=== PATIENT | female | born 1990 | race Caucasian/White ===

== ENCOUNTER 2017-03-06 05:18 | Inpatient (IN) | payer BC, OTHER ==
[2017-03-06] MEDS ORDERED: Misoprostol 50 MCG (1/2 of 100 MCG) Tab VAG PRN (06:09)
[2017-03-06] MEDS ORDERED: Lactated Ringers 500 ML IV ONE (09:13)
[2017-03-06] MEDS ORDERED: Misoprostol 400 MCG (4 X 100 MCG TAB) RECTAL PRN (09:13)
[2017-03-06] MEDS ORDERED: Lidocaine 1% 30 ML SDV INJECT PRN (09:13)
[2017-03-06] MEDS ORDERED: Calcium Carbonate 500 MG Tab.Chew PO PRN (09:13)
[2017-03-06] MEDS ORDERED: Methylergonovine 0.2 MG/1 ML Amp IM PRN (09:13)
[2017-03-06] MEDS ORDERED: Sodium Chloride 0.9% 10 ML Syringe FLUSH PRN (09:13)
[2017-03-06] MEDS ORDERED: Carboprost Tromethamine 250 MCG/1 ML Amp IM PRN (09:13)
[2017-03-06] MEDS ORDERED: Misoprostol 25 MCG (1/4 of 100 MCG) Tab VAG PRN (09:15)
[2017-03-06] MEDS: Oxytocin/Normal Saline 30 UNIT/500 ML BAG IV SCH (13:30)
[2017-03-06] MEDS ORDERED: Oxytocin/Normal Saline 30 UNIT/500 ML BAG IV SCH (13:30)
[2017-03-06] MEDS: Lactated Ringers 1,000 ML IV SCH (13:30)
--- NOTE | 2017-03-06 21:42 | PN ---
DATE: 03/06/2017 SUBJECTIVE: Nuvia did have one dose of Cytotec 25 mcg earlier this morning at about 7:20 a.m. She did begin to have fairly active contractions and then we did switch her over to IV Pitocin early in the afternoon. She was on low-dose IV Pitocin, this was gradually increased from the starting of 1 milliunit. When the IV Pitocin was at 4 milliunits at about 2:45 p.m. this afternoon, the patient did have a definite lack of variability and then some repetitive late decelerations. This was discussed thoroughly with head nurse, Joseline and myself, we did stop the IV Pitocin of course. A short time later, the patient's heart tones did start demonstrating category 1 again with very nice accelerations and moderate variability. We did leave the pit off for several hours. I did also re-evaluate the patient at 5:45 p.m. this afternoon. We had already evaluated her and seen her also over the noon hour. At 5:45 p.m., she was having a rare occasional contraction and category 1 heart tones. Cervical exam was 2 cm dilated, 60% effaced with the vertex at -2 station. The head was also somewhat ballotable. Her blood pressures have remained very stable of course. At that time, We did talk about the options of stripping the membranes again, which I did and also we talked about permitting her to ambulate in the [place] and used the birthing ball, etc. Patient has done that and although she did have more uterine activity during the ambulating time and also she did lose what might have been more of a mucus plug. The patient's contractions did space out ultimately again. We have re-evaluated and had another long and thorough discussion with the patient and her significant other, Sergo at about 8:00 p.m. tonight. We discussed the options of low-dose IV Pitocin again and perhaps just starting with 1 or 2 milliunits and possibly advancing to 3 milliunits later if heart tones stay normal. We also talked about the option of going home at any time she wanted tonight and to either wait for spontaneous labor in the relatively near future. Also, I could discuss her tomorrow with Dr. Lisseth Kumar, who is somewhat familiar with this patient also and decide whether or not Dr. Lisseth Kumar would want to try the induction again in the next few days or so. Also, I mentioned to the patient that I am coming back next Saturday, Saturday, or of next week. Because of the fact that the patient did demonstrate some short-term distress, I am somewhat hesitant on giving her Cytotec intravaginally again tonight since that may be hard to reverse once it is given. Certainly, we can stop IV Pitocin and because of the short half life, that can be done if any distress reoccurs. I do feel we have a healthy baby at this time and still somewhat of an unripe cervix. We did discuss the virtues of patience and waiting with the patient. All of her questions have been answered as best as possible. For now, she does choose to stay here for the present time and see if we can get progress with low- dose Pitocin for now. [facility] /[id number]
[2017-03-06] MEDS ORDERED: hydrOXYzine HCl 25 MG Tab PO PRN (22:29)
--- NOTE | 2017-03-07 08:57 | HP ---
HISTORY OF PRESENT ILLNESS: This patient is a very pleasant 26-year-old 3, para 2 patient, whom we have been following prenatally. Patient does request and urge induction of labor at this time. Her ELIO is 03/10/2017, and although her care was somewhat late in [place] when we started seeing her around 25 weeks gestation, she did have an early 3D OB ultrasound in [place] when she was 10 to 12 weeks along and that also gave her an ELIO of 03/10/2017. She also had another ultrasound at approximately 23 weeks gestation in [place] and that also confirmed the ELIO of 03/10/2017. She does request an urge to the induction of labor because of all the [facility] relatives and friends who are here helping her with director child and also her has recently sustained a left hand injury and is having some problems returning back to his regular work schedule. Her course has otherwise been quite uncomplicated, please see the EHR for further detail. Her lab data reveals that her GC and chlamydia testing were negative. RPR, hepatitis B surface antigen, and HIV testing all were negative also. Her blood type is O positive, unsensitized. She is negative for group B strep. She is nonimmune to rubella and will need rubella injection . She did have flu shot in the past 10 days. She also has had previous Tdap. Her 1 hour glucose screen was borderline at 1:32. PAST OBSTETRICAL HISTORY: She did have two vaginal deliveries previously without difficulty and she thinks that her babies were in the 7 pounds 14 ounce range. She has one girl of age 5 and the other girl of age 3. As mentioned above, she denied any problems with those courses and had induction of labor without difficulty for those two pregnancies. PAST MEDICAL HISTORY: She does admit to having attention deficit hyperactivity disorder, but is not on any Adderall or medications for that at the present time. Other medications consist of vitamins in the form of Flintstones Gummies. She denies any knowledge of heart, lung, liver, or kidney disease. ALLERGIES: None known, although she does admit to having some slight nausea when she takes Keflex or hydrocodone. FAMILY HISTORY: Interestingly, she does have a positive family history for malignant hyperthermia with her mother and a grandmother having that. Nuvia is aware that she should always inform any hr intern or anesthesiologist of this significant history before any operations. SOCIAL HISTORY: She is with her significant other, Sergo; he is employed in the [employer] area, he also recently had a significant hand injury to his left hand. The patient is a nonsmoker and does not use alcohol. PHYSICAL EXAMINATION: VITAL SIGNS: Weight 269 pounds. Blood pressure 120/72, pulse 72. HEENT: The sclerae are nonicteric. LUNGS: Clear to A. HEART: Regular rhythm without murmur. ABDOMEN: Gravid with reactive nonstress test. heart tones are 144, fundal height is 37 cm. There is negative CVA tenderness. VAGINAL: Today, remains at 1 to 2 cm, 50% effaced, and vertex at -2 station with the bag of yun intact. The presenting part is thought to be a vertex. EXTREMITIES: Reveal trace ankle edema. heart tones as mentioned above are category 1 with nice accelerations and moderate variability. IMPRESSION: The patient has requested an urged induction of labor for family reasons and also she does have it should be mentioned significant lower back and occasional abdominal discomfort of late . She is not sleeping well. I did consent to cautious trial of labor because of her cervix not being quite as ripe as we would like; we will start with a course of 25 mcg of Cytotec. We will see how she responds after 4 to 6 hours. Possible future IV Pitocin. Possible future amniotomy when the vertex is engaged. We did thoroughly discuss with her the risks and sometimes complications of induction of labor and she is aware that if she did not make adequate progress, we would back off and discontinue the induction procedure and try again in few days in the future or possibly even wait longer for onset of spontaneous labor if necessary. She is agreeable to what we have discussed. She also gives consent to and does request and urged the induction of labor. Her urinalysis from today is pending. She denies all urinary symptoms. Also, please see the EHR as it pertains to the remainder of her admission labor lab work. The patient will need rubella vaccine . [facility] /[id number]
--- NOTE | 2017-03-07 09:45 | PN ---
DATE: 03/07/2017 HISTORY: On rounds this morning, Alexeiera and the nurses report that the patient did get a moderate amount of rest last night, and the Pitocin was running for at least 6 hours at 6 milliunits. heart tones had remained category 1 at all times. The patient did notice the contractions getting stronger at approximately 7:45 a.m., to 8:00 a.m. today. I did see the patient at 8:30 a.m., to 8:45 a.m. this morning, on , 03/07/2017. heart tones remained category 1 as mentioned above. Cervical examination at approximately 8:30 to 8:45 this morning, shows that it is now 3+ cm dilated. It remains posterior. The effacement remains at approximately 60% to 65%. It is somewhat softer than yesterday. The vertex is at -2 to -1 station and of course, not quite low enough for safe or appropriate amniotomy. The patient is still urging and hoping for further induction of labor. I did tell her that I will thoroughly discuss her situation with Dr. Lisseth Kumar, who knows her and also Dr. Christiana Guerrero, who also was solutions engineer, and was familiar with her. Dr. Kumar, and I have most recently discussed her, and the current plan is to continue the Pitocin for now since she is caleb with good moderate quality contractions every 5 minutes. Possibly the Pitocin could be continued for the next 3 to 4.5 hours or so. If the cervix does efface better, and further cervical progress, one could continue on with the induction. If however the cervix remains at the present degree of effacement and not significant progress, consideration should be given to stopping the induction at this time, and then letting the patient go home and be re-evaluated in the next several days. Hopefully, spontaneous labor would then occur. These matters will be discussed with the head nurses and the patient. I have already discussed this most recently with Dr. Kumar as mentioned above. [facility] /[id number]
[2017-03-07] MEDS ORDERED: Nalbuphine 10 MG/1 ML Vial IM ONE ×2 (09:49→19:20)
[2017-03-07] MEDS: Lactated Ringers 1,000 ML IV SCH ×3 (16:05→23:19)
--- NOTE | 2017-03-07 17:17 | PCM.SN ---
- Free Text/Narrative Note: DOS: 03-07-17 Doing well. Feeling some cxns. Pit is back on and now up to 8. cervix is 4+ cm, soft, but still fairly thick. vertex is well applied and no longer ballotable. AROM carried out with return of moderate amount of clear fluid. FHTs remain reassuring. nice accels. baseline 135, no decels Will continue to increase pitocin as tolerated until active labor pattern obtained. Shamera planning intrathecal when indicated. All questions answered. Further management pending her clinical course in labor. margi
[2017-03-07] MEDS: Oxytocin/Normal Saline 30 UNIT/500 ML BAG IV SCH (19:35)
[2017-03-08] MEDS: Ondansetron 4 MG/2 ML SDV IV PRN ×2 (02:27→09:28)
[2017-03-08] MEDS ORDERED: fentaNYL 100 MCG/2 ML SDV ONE ×3 (02:49→14:06)
--- NOTE | 2017-03-08 03:15 | PCM.SN ---
- Free Text/Narrative Note: 03/08/17 [id number] intrathecal medications administered L 2-3 #24 pencan needle x 1 csf clear no paresthesia sufenta 20 mcg fentanyl 30 mcg 1.2ml pf normal saline 6 mg bupivacaine 0.1 mg epinephrine procedure along with risks goals alternatives explained to patientt and accepted
[2017-03-08] MEDS: Lactated Ringers 1,000 ML IV SCH ×4 (03:33→17:00)
[2017-03-08] MEDS ORDERED: fentaNYL 100 MCG/2 ML SDV ITHECAL ONE ×2 (08:30→17:29)
[2017-03-08] MEDS: Acetaminophen 325 MG Tab PO PRN (09:28)
--- NOTE | 2017-03-08 09:38 | PN ---
DATE: 03/08/2017 HISTORY OF PRESENT ILLNESS: Nuvia is a 26-year-old, G3, P2, who is now 39 and 5/7 weeks' gestation, who was admitted by Dr. Duarte for induction. I assumed her care yesterday. She had been started with Cytotec for cervical ripening followed by Pitocin augmentation. Yesterday, we were able to proceed with artificial rupture membranes with return of a moderate amount of clear fluid. After this, we increased her Pitocin infusion. Due to staffing on the OB floor, we were required to stop her Pitocin for several hours yesterday. During that time, her contractions essentially resolved. Yesterday late afternoon/early evening, we were able to restart the Pitocin. Her contractions then resumed and became uncomfortable for her. She had an intrathecal placed. She continued with the Pitocin increasing and her contractions became closer together. She had good relief of her discomfort from the intrathecal and was able to sleep through her contractions and rest for most of the night. heart tones remained reassuring. The baby tolerated the labor fairly well. This morning, her cervix is now 7+ cm dilated, and has thinned out nicely, and is nearly 90% effaced. However, the baby's head does still remain high. Had approximately a -1 station. The baby is moving its head around, but I suspect it is an OP presentation. It does not settle down well into the pelvis yet, but is not really ballotable at this point. She continues to have clear fluid leakage. She has no other new concerns or complaints. She is starting to feel her contractions more this morning and is interested in considering a second intrathecal if necessary. Her Pitocin at this time is up to 24. PHYSICAL EXAMINATION: General: On exam today, she appears well. She easily answers questions, and is comfortable between her contractions. With a contraction, she is uncomfortable, but is able to breathe through them easily. Lungs: She has no respiratory distress. Heart: Rate is regular. Abdomen: Soft between contractions. Extremities: She has no significant edema. Genitourinary: Vaginal exam is as noted. LABORATORY DATA: Labs today show her urine culture final result, mixed shefali, and appears to be a contaminant and not a urinary pathogen. baseline today is 125 at this time. She was having some early declarations intermittently. She had nice accelerations, especially with a vaginal exam and scalp stimulation. No worrisome declarations are noted. After IUPC placement, she is having contractions approximately every 3 minutes, and overall every 2 to 4 minutes. They are measuring 50 to 60. IMPRESSION: A 26-year-old, G3, P2, currently at 39 and 5/7 weeks' gestation. IUPC showing adequate contractions at this time on the Pitocin at high dose. I suspect OP presentation. I suspect this baby is larger than her other 2 babies, who were 7 pounds 14 ounces, although, her pelvis appears adequate. PLAN: Discussed options with Cindy. At this time, she wishes to try for vaginal delivery if possible and avoid a section. We will leave her IUPC in place. We will leave the Pitocin as it is. If her contractions are not excessively strong, and at this time, we will not need to go down on the Pitocin. She will try some change in maternal position to see if we can facilitate rotation of the baby. They do understand that if the baby does not change its position, the head may not come down, and she may require section for delivery. If her contractions become increasingly painful as her intrathecal wears off, the patient may request a second intrathecal if necessary if she is making good cervical change. If she has 2 to 4 hours of continued adequate contractions with no cervical change, we will consider proceeding to section for delivery as discussed. Cindy are comfortable with this plan. Further management pending her course in labor and tolerance of labor. All of their questions were answered. Rima will be following for 1 on 1 staffing and is also comfortable with this plan. Further management pending her clinical course. [facility] /[id number]
[2017-03-08] MEDS ORDERED: Citric Acid/Sodium Citrate Solution 30 ML Cup PO ONE (12:02)
[2017-03-08] MEDS ORDERED: Oxytocin/Normal Saline 30 UNIT/500 ML BAG ONE ×2 (12:03→12:26)
[2017-03-08] MEDS ORDERED: Clindamycin Phosphate 900 MG in Sodium Chloride 0.9% 100 ML IV ONE (12:23)
[2017-03-08] MEDS ORDERED: ePHEDrine 50 MG/ML SDV ONE (12:24)
[2017-03-08] MEDS ORDERED: Ondansetron 4 MG/2 ML SDV ONE (12:24)
[2017-03-08] MEDS ORDERED: Dexamethasone 4 MG/ML SDV ONE (12:24)
[2017-03-08] MEDS ORDERED: Morphine PF 1 MG/ML Amp ONE (12:24)
[2017-03-08] MEDS ORDERED: Ketorolac 30 MG/ML SDV ONE (12:25)
[2017-03-08] MEDS ORDERED: Clindamycin Phosphate 900 MG/6 ML SDV ONE (12:28)
[2017-03-08] MEDS ORDERED: Sodium Chloride 0.9% 100 ML ONE (12:28)
--- NOTE | 2017-03-08 14:53 | PN ---
DATE: 03/08/2017 SUBJECTIVE: Nuvia is a 26-year-old, G3, P2 who was admitted by Dr. Duarte for induction at 39 and 3/7 weeks gestation. She started with Cytotec followed by artificial rupture of membranes and Pitocin augmentation. We have subsequently placed an IUPC and she has been having adequate contractions. However, she has had arrest of labor at 7 cm dilation for the last several hours and we suspect this baby is in an OP presentation. Remains at a -1 station. She has had 2 intrathecal and is now at a time when she and her significant other who is the father of the baby both wished to proceed with the section that we had previously discovered. The baby has remained with a reassuring pattern. We have discussed spinal anesthesia. We will plan on primary low-transverse section with Pfannenstiel incision. The risks of the procedure will include but not be limited to reaction to anesthesia, injury to mom or baby, hemorrhage and possible need of blood transfusion with its inherent risks, blood clots, DVT, PE, etc., need for further surgery or other complications. All of their questions have been answered and they wished to proceed with a section as previously discussed. I will be assisted by Dr. Burris and Robby Che, MS 4. Dr. Guerrero and Dr. Chavez are also available geospatial information scientist today and we will have their pagers on in case we need them for assistance. Further management pending her course and surgery. Luciano are happy with this plan and feel that we have given every chance for vaginal delivery. [facility] /[id number]
[2017-03-08] MEDS ORDERED: Ketorolac 30 MG/ML SDV IVPUSH SCH (18:00)
[2017-03-08] MEDS: Ketorolac 30 MG/ML SDV IVPUSH SCH (19:31)
[2017-03-09] MEDS: Lactated Ringers 1,000 ML IV SCH ×2 (01:22→10:02)
[2017-03-09] MEDS: Ketorolac 30 MG/ML SDV IVPUSH SCH ×2 (02:06→08:34)
--- NOTE | 2017-03-09 03:10 | OR ---
DATE: 03/08/2017 PREOPERATIVE DIAGNOSES: 1. A 26-year-old, G3, P2, at 39 and 5/7 weeks' gestation. 2. Arrest of labor with arrest of decent. 3. Rubella nonimmune. 4. Group B strep negative. 5. O positive blood type. POSTOPERATIVE DIAGNOSES: 1. A 26-year-old, G3, P2, at 39 and 5/7 weeks' gestation. 2. Arrest of labor with arrest of decent. 3. Rubella nonimmune. 4. Group B strep negative. 5. O positive blood type. 6. Now 26-year-old, 3, now para 3, ROP position of baby confirmed with a nuchal cord x1 and shoulder cord x1. 7. A viable female , 7 pounds 7 ounces/3365 g with Apgars 9 and 9. 8. candidate. PROCEDURE: Primary low-transverse section with two-layer closure. ASSISTANTS: 1. Dr. Burris. 2. Robby Che, MS-4. 3. Available immediately if needed, Dr. Guerrero and Dr. Chavez. FINDINGS: This 26-year-old G3, P2 at 39 and 5/7 weeks' gestation was brought in for induction by Dr. Duarte and has had subsequent arrest of descent in labor at 7 cm dilated in spite of adequate contractions. Please see her notes for details. She subsequently was brought down to the OR and underwent spinal anesthesia with good results. A Rdz catheter was placed and had return of clear urine. She was prepped and draped in the usual sterile manner. She received clindamycin 900 mg IV preoperatively. A purple skin marker was used to niels her Pfannenstiel incision site. A scalpel was used to make a skin incision. A time-out had been performed in my presence. Electrocautery was used to carry down through the subcutaneous tissue to the fascia which was divided transversely. Superior and inferior fascial flaps were developed with sharp and blunt dissection. The muscle was divided in the midline, and the peritoneum was identified and entered bluntly. Incision was extended and opened until we had excellent visualization of the lower uterine segment. XL Rodo was placed without difficulty and we had excellent visualization. A bladder flap was developed with blunt dissection. A stab incision was made in the lower uterine segment and carried down to the level of the amniotic sac. This was bluntly entered by me and return of clear fluid. This was extended laterally with blunt dissection and the baby was indeed found to be in a ROP position. The vertex was elevated and easily entered into the incision and a fairly tight nuchal cord x1 was noted which was reduced. The cord was also wrapped around the right shoulder and axilla quite tightly. The remainder of the was delivered without difficulty. This viable female was delivered at 1302 hours on 03/08/2017, and was found to have scores of 9 and 9 at one and five minutes respectively with a weight of 7 pounds 7 ounces/3365 g. She had a strong cry at and was suctioned and stimulated and dried while her cord was doubly clamped and cut. She was carried over to the warmer by LOLA Puga. A cord blood sample was obtained. Placenta was removed and appeared to be intact. The uterus was wiped clean and dry. The uterine incision edges were grasped with Shea forceps and then closed with running locking 0 Vicryl suture. A second imbricating layer was placed of the 0 Vicryl suture. Several hemostatic sutures were placed in the right side of the uterine incision edge with confirmation of hemostasis. Electrocautery was used for small bleeders throughout the case. The uterus appeared to have normal anatomy including tubes and ovaries. The posterior cul-de-sac was examined and aspirated and did not show any sign of active bleeding. Uterus was placed back into the abdominal cavity. The area was irrigated, wiped clean and dry, and did not show any signs of active bleeding. All blood clots had been removed. Again, hemostasis was confirmed over the area of the incision. Peritoneal muscles were pulled together with running 0 Vicryl. The fascia was closed with loop Maxon. The subcutaneous layer was examined and bleeders were electrocauterized. The skin layer was brought together with brooke with excellent results. There were no intraoperative complications. The patient tolerated the procedure well. She received clindamycin IV infusion 900 mg preop. IV Pitocin infusing per protocol. 1500 mL clear urine output with no sign of hematuria. ESTIMATED BLOOD LOSS: 600 mL. DISPOSITION: The patient was transferred to the recovery area in good condition. [facility] /[id number]
[2017-03-09] MEDS: Acetaminophen 325 MG Tab PO PRN (10:10)
[2017-03-09] MEDS: Prenatal Multivitamin with Calcium/Folic Acid/Iron Tab PO SCH (10:10)
[2017-03-09] MEDS: Simethicone 80 MG Tab.Chew PO PRN ×2 (10:10→18:15)
[2017-03-09] MEDS: Ibuprofen 800 MG Tab PO PRN (18:15)
[2017-03-09] MEDS: Ferrous Sulfate 325 MG Tab PO SCH (18:15)
[2017-03-09] MEDS: Acetaminophen/oxyCODONE 325-5 MG Tab PO PRN ×2 (18:16→22:42)
--- NOTE | 2017-03-09 20:23 | PN ---
DATE: 03/09/2017 The patient is postoperative day 1, status post primary low transverse for failed induction. Mom and baby are both doing well. She is tolerating p.o., has good pain control and is ambulating. Unfortunately, her Rdz was removed last night and it had to be replaced when she could not void. The patient on physical exam is afebrile. Heart rate 64 to 82, blood pressure 116 to 134 over 46 to 74, respiratory rate 16 to 18. The patient's blood type is O positive. She is rubella nonimmune. The patient's abdomen is benign. Extremities have no tenderness, no edema. Fundus is firm below the umbilicus. Bandage is intact, clean and dry. Due to this patient having some difficulty voiding, UA was performed that was negative. Patient's preoperative CBC; white count 10.5, hemoglobin 11.2, and platelets 375. Postoperative CBC; white count 17.8, hemoglobin 8.9, and platelets 262. ASSESSMENT AND PLAN: Postoperative day #1, status post primary low-transverse section after failed induction. The patient will have another voiding trial today. We will remove the Rdz and see if she is able to urinate. Otherwise, we will continue postoperative care and continue iron for her mild anemia. [facility] /[id number] MTDD
[2017-03-10] MEDS: Acetaminophen/oxyCODONE 325-5 MG Tab PO PRN ×2 (02:45→14:43)
[2017-03-10] MEDS: Ibuprofen 800 MG Tab PO PRN ×2 (05:21→14:24)
[2017-03-10] MEDS ORDERED: Ondansetron 4 MG Tab.DIS PO PRN (05:27)
[2017-03-10] MEDS: Ferrous Sulfate 325 MG Tab PO SCH (08:32)
[2017-03-10] MEDS: Prenatal Multivitamin with Calcium/Folic Acid/Iron Tab PO SCH (08:32)
[2017-03-10] MEDS: Acetaminophen 325 MG Tab PO PRN (08:32)
[2017-03-10] MEDS: Simethicone 80 MG Tab.Chew PO PRN (08:32)
[2017-03-10] MEDS ORDERED: Measles, Mumps & Rubella Vaccine 0.5 ML SDV SUBCUT ONE (10:47)
[2017-03-10] MEDS ORDERED: Acetaminophen/Butalbital/Caffeine 325-50-40 MG Tab PO PRN (10:49)
[2017-03-10] MEDS ORDERED: Docusate Sodium 100 MG Cap PO PRN (10:50)
[2017-03-10] MEDS ORDERED: Acetaminophen/Codeine 300-30 MG Tab PO PRN (11:49)
[2017-03-10 12:12] VITALS: BP 121/58
--- NOTE | 2017-03-10 17:09 | PN ---
DATE: 03/10/2017 SUBJECTIVE: The patient is postoperative day #2, status post primary low transverse for failed induction. The patient is tolerating p.o., voiding, ambulating, has good pain control. However, she is experiencing significant headache, likely spinal headache, also some constipation. Baby is doing well. PHYSICAL EXAMINATION: Vital Signs: The patient is afebrile. Heart rate 60 to 82, blood pressure of 100 to 138 over 60 to 77, respiratory rate 18 to 20, and O2 saturations 97% to 100%. Abdomen: Benign. Bandage was removed. Bruce are in place. Incision is clean, dry, and intact. Pelvic: Fundus is firm below the umbilicus. Extremities: Have no tenderness, no edema. LABORATORY DATA: The patient is O positive. Rubella nonimmune. Did order her MMR this morning. A pre-delivery CBC showed a white blood cell count of 10.5, hemoglobin 11.2, platelets 375; and then postoperative CBC showed white blood cell count of 17.8, hemoglobin 8.9, and platelets 262. ASSESSMENT AND PLAN: Postoperative day #2, status post primary . Mom and baby are both doing well. For the constipation, I did go ahead and ordered Colace; for her anemia, we will continue her iron; and for the spinal headache, I did order Fioricet; and if that did not help, then I would likely seek the recommendation of our RV DETAILER and then the patient will likely be discharged once she is feeling better. [facility] /[id number]
[2017-03-10] MEDS ORDERED: Morphine PF 1 MG/ML Amp ONE (17:29)
[2017-03-10] MEDS ORDERED: Ondansetron 4 MG/2 ML SDV IV ONE (17:29)
[2017-03-10] MEDS ORDERED: Dexamethasone 4 MG/ML SDV IV ONE (17:29)
[2017-03-10] MEDS ORDERED: Nalbuphine 20 MG/1 ML Amp IV ONE (17:29)
[2017-03-10] MEDS ORDERED: Ketorolac 30 MG/ML SDV IVPUSH ONE (17:29)
[2017-03-10] MEDS ORDERED: Oxytocin/Normal Saline 30 UNIT/500 ML BAG IV ONE (17:29)
--- NOTE | 2017-03-11 08:18 | PCM.PRNOTE ---
- Free Text/Narrative Note: I obtained the history and performed a limited anesthesia examination of this patient. She requests labor analgesia in the form of ITN. I obtained her written and verbal informed consent. I performed the ITN in her labor room with the assistance of her OB RN. I utilized sterile technique including hat, mask and gloves. I used povidone/iodine skin prep x3 and placed a sterile drape. I utilized lidocaine skin wheal at L3/[address] a 25ga. Pencan midline to obtain CSF on the first try. I then injected a mixture of Fentanyl 25ug and Marcaine/Dextrose 4mg ITN and obtained good bilateral effect of leg warmth and analgesia within 3 minutes. Maternal VSS and VS reassuring before, during and after ITN.
--- NOTE | 2017-05-13 07:43 | DISCH ---
She was admitted on 03/06/2017 with a diagnosis of an intrauterine at 39+ weeks' gestational age, admitted for elective induction. She was discharged on 03/10/2017, postoperative day #2, status post primary low-transverse C- section for failed induction and failure to progress. HOSPITAL COURSE: The patient did desire induction. She was given both Cytotec and low-dose Pitocin and even offered to come back on another day when her cervix is more favorable. She wished to proceed. Therefore, she also underwent AROM. She did have a failure to progress at 7 cm. She did undergo a primary low transverse on 03/08/2017. The postoperative course was uneventful except for spinal headache. Hemoglobin postoperatively was 8.9 from 11.2 preop. The patient's blood type is O positive. The patient is rubella immune. Abdomen is benign, and vital signs remained stable. During her hospital course, by postoperative day #2, she was ambulating, voiding, tolerating p.o., and had good pain control. Therefore, she was sent home on pain medications and iron. She is to follow up for both staple removal and then for a 6-week visit. The patient is to be continue pelvic and abdominal rest. She was discharged in stable condition on 03/10/2017. MODL /[id number] MTDJuani
== END 2017-03-10 17:30 | disposition home or self-care (01) | DRG 540 ==
LOC: DL.OB 05:42 → UNDOADMOB 05:42 → INTOOBSV 03-08 13:02 → OBSVTOIN 03-08 13:02 → DL.MS 03-09 17:18 → UNDOADMOB 03-09 17:18 → INTOOBSV 03-09 17:18 → OBSVTOIN 03-09 17:18 → DL.OB 03-10 17:25 → DL.MS 03-10 17:25 → UNDODISIN 03-10 17:30
PROVIDERS: ADMIT Family Medicine; ATTEND Obstetrics & Gynecology
PROC: 3E033VJ Introduction of Other Hormone into Peripheral Vein, Percutaneous Approach (ICD-10-PCS; 2017-03-06)
PROC: 3E0P7GC Introduction of Other Therapeutic Substance into Female Reproductive, Via Natural or Artificial Opening (ICD-10-PCS; 2017-03-06)
PROC: 00HU33Z Insertion of Infusion Device into Spinal Canal, Percutaneous Approach (ICD-10-PCS; 2017-03-08)
PROC: 3E0R3CZ (ICD-10-PCS; 2017-03-08)
PROC: 10D00Z1 Extraction of Products of Conception, Low, Open Approach (ICD-10-PCS; principal; 2017-03-09)
DX: O62.1 Secondary uterine inertia (principal); O69.81X0 Labor and delivery complicated by cord around neck, without compression, not applicable or unspecified; Z3A.40 40 weeks gestation of pregnancy; Z37.0 Single live birth
CPT/HCPCS: 36415; 51702; 81001; 85027; 86850; 86900; 86901; 87086; 90471; 90707; A9270-GY; J1100; J1885; J2274; J2300; J2405; J2590; J3010; J7050; J7120; S0077

== ENCOUNTER 2017-09-25 07:42 | Emergency (ER) | payer BC, OTHER, SELFPAY ==
[2017-09-25 08:09] VITALS: BP 142/77
[2017-09-25] MEDS ORDERED: Sodium Chloride 0.9% 1,000 ML IV ONE (08:47)
[2017-09-25] MEDS ORDERED: Ondansetron 4 MG/2 ML SDV IV ONE (08:47)
[2017-09-25] MEDS ORDERED: Sodium Chloride 0.9% 10 ML Syringe FLUSH PRN (08:48)
--- NOTE | 2017-09-25 09:09 | EDM.PDOC ---
ED HPI GENERAL MEDICAL PROBLEM - General Chief Complaint: Gastrointestinal Problem Stated Complaint: SICK X 2 DAYS, [id number] Time Seen by Provider: 09/25/17 08:25 Source of Information: Reports: Patient, Old Records, RN, RN Notes Reviewed History Limitations: Reports: No Limitations - History of Present Illness INITIAL COMMENTS - FREE TEXT/NARRATIVE: Arrives from home by POV with c/o three days duration of nausea, vomiting, and watery diarrhea. Pt reports onset of Sx's was 4 hours after eating at [employer] , so she thought she had food poisoning but now that the Sx's have persisted for 3 days she thinks maybe she just got a "stomach flu" or something other than food poisoning. She denies fever or abdominal pain, mucus in stool, bloody or black/dark stool or emesis, coffee ground emesis, or melena. Admits to chills and mild cold sweats that precede episodes of emesis, and to crescendos of abdominal cramping that build and precede diarrhea BM's. No known sick contacts. Onset: Sudden Onset Date: 09/22/17 Duration: Waxing/Waning Location: Reports: Abdomen Quality: Reports: Other (cramping) Severity: Severe Improves with: Reports: None Worsens with: Reports: Eating Associated Symptoms: Reports: No Other Symptoms Treatments CONDENSER TESTER: Reports: Acetaminophen - Related Data Allergies Allergy/AdvReac Type Severity Reaction Status Date / Time acetaminophen Allergy Nausea and Verified 02/22/17 12:58 [From Lorcet (hydrocodone)] Vomiting cephalexin [From Keflex] Allergy Nausea Verified 02/22/17 12:58 hydrocodone Allergy Nausea and Verified 02/22/17 12:58 [From Lorcet (hydrocodone)] Vomiting Home Meds: Home Meds Acetaminophen [Tylenol] 350 mg PO Q4H PRN 11/26/16 [History] buPROPion HCl [Wellbutrin SR] 1 tab PO DAILY 09/25/17 [History] Past Medical History - Past Health History Medical/Surgical History: Denies Medical/Surgical History Genitourinary History: Reports: UTI, 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: , Other (See Below) : 3 Para: 3 Other OB/BYN History: treated for BV recently Psychiatric History: Reports: ADHD Endocrine/Metabolic History: Reports: Obesity/BMI 30+ - Past Surgical History Female Surgical History: Reports: Section Social & Family History - Family History Family Medical History: Unobtainable - Tobacco Use Smoking Status *Q: Former Smoker Used Tobacco, but Quit: Yes Month/Year Tobacco Last Used: 09/2016 Second Hand Smoke Exposure: No - Caffeine Use Caffeine Use: Reports: Coffee, Soda - Recreational Drug Use Recreational Drug Use: No - Living Situation & Occupation Living situation: Reports: , with Family Occupation: Employed ED ROS GENERAL - Review of Systems Review Of Systems: ROS reveals no pertinent complaints other than HPI. ED EXAM, GI/ABD - Physical Exam Exam: See Below Exam Limited By: No Limitations General Appearance: Alert, WD/WN, No Apparent Distress, Obese Eyes: Bilateral: Normal Appearance (no scleral icterus) Nose: Normal Inspection Throat/Mouth: Normal Lips, Normal Teeth, Normal Gums, Normal Oropharynx, Normal Voice, No Airway Compromise, Other (dry oral membranes) Head: Atraumatic, Normocephalic Neck: Normal Inspection, Supple, Non-Tender, Full Range of Motion. No: Lymphadenopathy (L), Lymphadenopathy (R) Respiratory/Chest: No Respiratory Distress, Lungs Clear, Normal Breath Sounds, No Accessory Muscle Use, Chest Non-Tender Cardiovascular: Regular Rate, Rhythm, No Edema, No Murmur, Tachycardia GI/Abdominal Exam: Normal Bowel Sounds, Soft, No Distention, No Abnormal Bruit, Tender (mild generalized upper and left sided abd. tenderness, no RLQ tenderness , no peritoneal signs.). No: Guarding, Rigid, Rebound (Female) Exam: Deferred Rectal (Female) Exam: Deferred Back Exam: Normal Inspection, Full Range of Motion. No: CVA Tenderness (L), CVA Tenderness (R) Extremities: Normal Inspection, Non-Tender Neurological: Alert, Oriented, CN II-XII Intact, Normal Cognition, Normal Gait, No Motor/Sensory Deficits Psychiatric: Normal Affect, Normal Mood Skin Exam: Warm, Dry, Intact, Normal Color, No Rash Course - Vital Signs Last Recorded V/S: Last Vital Signs Temp 36.1 C 09/25/17 08:08 Pulse 112 H 09/25/17 08:08 Resp 20 09/25/17 08:08 BP 142/77 H 09/25/17 08:08 Pulse Ox 97 09/25/17 08:08 - Orders/Labs/Meds Orders: Active Orders 24 hr Category Date Time Status Peripheral IV Care [RC] . DIRECTED Care 09/25/17 08:49 Active C DIFFICILE TOXIN BY PCR [MREF] Stat Lab 09/25/17 09:40 Received CULTURE STOOL [RM] Stat Lab 09/25/17 09:40 Received HCG QUALITATIVE,URINE [URCHEM] Stat Lab 09/25/17 09:33 Ordered OCCULT BLOOD DIAGNOSTIC [OP] Stat Lab 09/25/17 09:40 Ordered SHIGA TOXIN 1 & 2 [MREF] Stat Lab 09/25/17 09:40 Received UA W/MICROSCOPIC [URIN] Stat Lab 09/25/17 09:33 Ordered Sodium Chloride 0.9% [Saline Flush] Med 09/25/17 08:48 Active 10 ml FLUSH ASDIRECTED PRN Peripheral IV Insertion Adult [OM.PC] Stat Oth 09/25/17 08:48 Ordered Medication Orders Sodium Chloride (Saline Flush) 10 ml FLUSH ASDIRECTED PRN PRN Reason: Keep Vein Open Last Admin: 09/25/17 08:53 Dose: 10 ml Labs: Laboratory Tests 09/25/17 09/25/17 09/25/17 Range/Units 09:00 09:00 09:00 WBC 6.2 (5.0-10.0) 10^3/uL RBC 5.30 (4.2-5.4) 10^6/uL Hgb 13.9 D (12.0-16.0) g/dL Hct 42.6 (37.0-47.0) % MCV 80.4 D (80-100) fL MCH 26.2 L (27.0-34.0) pg MCHC 32.6 L (33.0-35.0) g/dL Plt Count 251 (150-450) 10^3/uL Neut % (Auto) 75.3 H (42.2-75.2) % Lymph % (Auto) 11.9 L (20.5-50.1) % [place] % (Auto) 10.3 H (2-8) % Eos % (Auto) 2.3 (1.0-3.0) % Baso % (Auto) 0.2 (0.0-1.0) % Sodium 135 (135-145) mmol/L Potassium 3.1 L (3.6-5.0) mmol/L Chloride 106 (101-111) mmol/L Carbon Dioxide 20.0 L (21.0-31.0) mmol/L Anion Gap 12.1 BUN 12 (7-18) mg/dL Creatinine 0.7 (0.6-1.3) mg/dL Est Cr Clr Drug Dosing TNP Estimated GFR (MDRD) > 60 BUN/Creatinine Ratio 17.14 Glucose 88 (74-105) mg/dL Calcium 8.2 L (8.4-10.2) mg/dl Total Bilirubin 0.4 (0.2-1.0) mg/dL AST 87 H (10-42) IU/L ALT 56 (10-60) IU/L Alkaline Phosphatase 54 (42-121) IU/L C-Reactive Protein 5.1 H (0.0-1.3) mg/dL Total Protein 7.3 (6.7-8.2) g/dl Albumin 3.9 (3.2-5.5) g/dl Globulin 3.4 Albumin/Globulin Ratio 1.15 Amylase 22 L (28-100) U/L Lipase 17 L (22-51) U/L Urine Color (YELLOW) Urine Appearance (CLEAR) Urine pH (5.0-9.0) Ur Specific [place] (1.005-1.030) Urine Protein (NEGATIVE) Urine Glucose (UA) (NEGATIVE) Urine Ketones (NEGATIVE) Urine Occult Blood (NEGATIVE) Urine Nitrite (NEGATIVE) Urine Bilirubin (NEGATIVE) Urine Urobilinogen (0.2-1.0) mg/dL Ur Leukocyte Esterase (NEGATIVE) Urine RBC /HPF Urine WBC (0-5/HPF) /HPF Ur Epithelial Cells /HPF Amorphous Sediment (0/HPF) /HPF Urine Bacteria (0-FEW/HPF) /HPF Urine Mucus /LPF Urine HCG, Qual 18 09/25/17 Range/Units 09:33 09:33 WBC (5.0-10.0) 10^3/uL RBC (4.2-5.4) 10^6/uL Hgb (12.0-16.0) g/dL Hct (37.0-47.0) % MCV (80-100) fL MCH (27.0-34.0) pg MCHC (33.0-35.0) g/dL Plt Count (150-450) 10^3/uL Neut % (Auto) (42.2-75.2) % Lymph % (Auto) (20.5-50.1) % [place] % (Auto) (2-8) % Eos % (Auto) (1.0-3.0) % Baso % (Auto) (0.0-1.0) % Sodium (135-145) mmol/L Potassium (3.6-5.0) mmol/L Chloride (101-111) mmol/L Carbon Dioxide (21.0-31.0) mmol/L Anion Gap BUN (7-18) mg/dL Creatinine (0.6-1.3) mg/dL Est Cr Clr Drug Dosing Estimated GFR (MDRD) BUN/Creatinine Ratio Glucose (74-105) mg/dL Calcium (8.4-10.2) mg/dl Total Bilirubin (0.2-1.0) mg/dL AST (10-42) IU/L ALT (10-60) IU/L Alkaline Phosphatase (42-121) IU/L C-Reactive Protein (0.0-1.3) mg/dL Total Protein (6.7-8.2) g/dl Albumin (3.2-5.5) g/dl Globulin Albumin/Globulin Ratio Amylase (28-100) U/L Lipase (22-51) U/L Urine Color Straw (YELLOW) Urine Appearance Slightly cloudy (CLEAR) Urine pH 6.0 (5.0-9.0) Ur Specific [place] 1.025 (1.005-1.030) Urine Protein 100 H (NEGATIVE) Urine Glucose (UA) Negative (NEGATIVE) Urine Ketones 40 H (NEGATIVE) Urine Occult Blood Trace-intact H (NEGATIVE) Urine Nitrite Negative (NEGATIVE) Urine Bilirubin Small H (NEGATIVE) Urine Urobilinogen 0.2 (0.2-1.0) mg/dL Ur Leukocyte Esterase Negative (NEGATIVE) Urine RBC 0-5 /HPF Urine WBC 0-5 (0-5/HPF) /HPF Ur Epithelial Cells Moderate H /HPF Amorphous Sediment Few (0/HPF) /HPF Urine Bacteria Many H (0-FEW/HPF) /HPF Urine Mucus Many H /LPF Urine HCG, Qual Negative Stool Hemoccult: Positive Stool culture: pending C-diff: pending Meds: Medications Generic Name Dose Route Start Last Admin Trade Name Freq PRN Reason Stop Dose Admin Sodium Chloride 10 ml 09/25/17 08:48 09/25/17 08:53 Saline Flush FLUSH 10 ml ASDIRECTED PRN Administration Keep Vein Open Discontinued Medications Generic Name Dose Route Start Last Admin Trade Name Yusefq PRN Reason Stop Dose Admin Sodium Chloride 1,000 mls @ 999 mls/hr 09/25/17 08:47 09/25/17 08:52 Normal Saline IV 09/25/17 09:47 999 mls/hr .BOLUS ONE Administration Ondansetron HCl 4 mg 09/25/17 08:47 09/25/17 08:52 Zofran IV 09/25/17 08:48 4 mg ONETIME ONE Administration Departure - Departure Time of Disposition: :18 Disposition: Home, Self-Care 01 Condition: Good Clinical Impression: Colitis, Nausea vomiting and diarrhea, Hypokalemia, gastrointestinal losses, Fatty liver disease, nonalcoholic - Discharge Information Instructions: Colitis, Nausea and Vomiting, Adult, [id number], Fatty Liver Forms: ED Department Discharge Additional Instructions: Rx: Bentyl 20mg *Do not drive while under the influence of this medication. Rx: Zofran 4mg Avoid dairy products (except yogurt with active cultures), fried or greasy foods , and spicy foods. Drink plenty of water. Use over the counter Immodium AD as needed for diarrhea (follow dosing directions on package). Low carb diet (or Keto diet) for fatty liver disease. Follow up in clinic on Saturday or Saturday (09/27 or 09/30/17) for recheck of colitis, and further evaluation of fatty liver. Return to ER if worse at any time. - My Orders Last 24 Hours: My Active Orders 09/25/17 08:48 Sodium Chloride 0.9% [Saline Flush] 10 ml FLUSH ASDIRECTED PRN Peripheral IV Insertion Adult [OM.PC] Stat 09/25/17 08:49 Peripheral IV Care [RC] . DIRECTED 09/25/17 09:33 HCG QUALITATIVE,URINE [URCHEM] Stat UA W/MICROSCOPIC [URIN] Stat 09/25/17 09:40 C DIFFICILE TOXIN BY PCR [MREF] Stat CULTURE STOOL [RM] Stat OCCULT BLOOD DIAGNOSTIC [OP] Stat SHIGA TOXIN 1 & 2 [MREF] Stat - Assessment/Plan Last 24 Hours: My Active Orders 09/25/17 08:48 Sodium Chloride 0.9% [Saline Flush] 10 ml FLUSH ASDIRECTED PRN Peripheral IV Insertion Adult [OM.PC] Stat 09/25/17 08:49 Peripheral IV Care [RC] . DIRECTED 09/25/17 09:33 HCG QUALITATIVE,URINE [URCHEM] Stat UA W/MICROSCOPIC [URIN] Stat 09/25/17 09:40 C DIFFICILE TOXIN BY PCR [MREF] Stat CULTURE STOOL [RM] Stat OCCULT BLOOD DIAGNOSTIC [OP] Stat SHIGA TOXIN 1 & 2 [MREF] Stat
[2017-09-25 09:27] LABS: CHLORIDE,CL 106 mmol/L (101-111); SODIUM,NA 135 mmol/L (135-145)
== END 2017-09-25 10:54 | disposition home or self-care (01) ==
LOC: DL.ED 07:42
DX: K52.9 Noninfective gastroenteritis and colitis, unspecified (principal); E87.6 Hypokalemia; K76.0 Fatty (change of) liver, not elsewhere classified; E66.9 Obesity, unspecified; Z88.8 Allergy status to other drugs, medicaments and biological substances; Z88.5 Allergy status to narcotic agent; Z88.1 Allergy status to other antibiotic agents; Z79.899 Other long term (current) drug therapy; Z87.891 Personal history of nicotine dependence
CPT/HCPCS: 36415; 80053; 81001; 81025; 82150; 82272; 83690; 85025; 86140; 87045; 87046; 87493; 87899; 96361; 96374; 99283; J2405; J7030; J7050